=== PATIENT | female | born 1990 | race Caucasian/White ===

== ENCOUNTER 2017-11-21 13:21 | Emergency (ER) | payer OTHER ==
[~2017-11-21] VITALS: Ht 157.5 cm; Wt 127.7 kg
[2017-11-21 13:28] VITALS: BP 129/60; TEMP 98.2
[2017-11-21 13:57] LABS: COLLECTION METHOD CLEAN CATCH
[2017-11-21 14:17] LABS: MUCOUS Present /lpf; PH 6 (5-8); URINE APPEARANCE Hazy; URINE BACTERIA None Seen /hpf; URINE BILIRUBIN Negative (NEGATIVE); URINE BLOOD Negative (NEGATIVE); URINE COLOR Yellow; URINE GLUCOSE Negative (NEGATIVE); URINE KETONE Negative (NEGATIVE); URINE LEUKOCYTE ESTERASE 1+ (NEGATIVE); URINE NITRATE Negative (NEGATIVE); URINE PROTEIN(semi-quant) Negative (NEGATIVE); URINE RBC 0-2 /hpf; URINE UROBILINOGEN Negative (NEGATIVE)
[2017-11-21 15:04] LABS: BASO % 0.3 % (0.0-2.0); EOS # 0.1 (0.0-0.7); EOS % 1.3 % (0-4.0); GRAN # 6.6 (1.4-6.5); GRAN % 70.8 % (42.2-75.2); HEMOGLOBIN 10.7 g/dl (12.5-16.0); LYMPH % 21.1 % (20.0-51.0); MEAN CELL VOLUME 88 fl (80.0-100.0); MEAN CORPUSCULAR HEMOGLOBIN 30 pg (27.0-31.0); MEAN CORPUSCULAR HGB CONC 33 g/dl (33.0-37.0); MEAN PLATELET VOLUME 11.4 fl (7.4-10.4); MONO # 0.6 (0.1-0.6); PLATELET COUNT 222 K/mm3 (130-400); RED BLOOD COUNT 3.63 M/mm3 (4.10-5.30); REDCELL DISTRIBUTION WIDTH-CV 13.3 % (11.5-14.5)
[2017-11-21 15:15] LABS: ALBUMIN 3.3 gm/dL (3.5-5.0); BILIRUBIN,TOTAL 0.6 mg/dL (0.0-1.0); C-REACTIVE PROTEIN 1.6 mg/dL (0.0-0.9); CALCIUM 9.1 mg/dL (8.4-10.2); CREATININE, serum 0.51 mg/dL (0.52-1.25); POTASSIUM 3.8 mmol/L (3.4-5.0); TOTAL PROTEIN 7.4 gm/dL (6.4-8.2)
[2017-11-21 17:08] VITALS: PULSE 71
== END 2017-11-21 17:08 | disposition home or self-care (01) ==
LOC: COL.ER 13:21
PROVIDERS: Nurse Practitioner
DX: R51 Headache (principal)
CPT/HCPCS: J1200; J2765; J7030

== ENCOUNTER 2018-01-04 17:23 | Outpatient (CLI) | payer OTHER ==
[~2018-01-04] VITALS: Ht 157.5 cm; Wt 131.8 kg
[2018-01-04 17:49] VITALS: BP 122/68; PULSE 75; TEMP 98.7
[2018-01-04 18:00] VITALS: BP 122/68; PULSE 75; TEMP 98.7
[2018-01-04 18:22] VITALS: BP 120/66; PULSE 77
== END 2018-01-04 18:40 | disposition home or self-care (01) ==
LOC: LDRO 17:23 → LDR 17:23 → LDRO 18:40
DX: Z34.83 Encounter for supervision of other normal pregnancy, third trimester (principal); Z3A.37 37 weeks gestation of pregnancy
CPT/HCPCS: OP

== ENCOUNTER 2018-01-17 08:36 | Inpatient (IN) | payer OTHER ==
[~2018-01-17] VITALS: Ht 157.5 cm; Wt 132.3 kg
[2018-01-18] VITALS (63 sets, daily range): BP systolic 97–146; BP diastolic 52–80; PULSE 56–97; TEMP 97.3–98.5
[2018-01-18 08:27] LABS: BASO % 0.4 % (0.0-2.0); EOS # 0.1 (0.0-0.7); EOS % 1.1 % (0-4.0); GRAN # 5.7 (1.4-6.5); GRAN % 69.6 % (42.2-75.2); HEMOGLOBIN 10.3 g/dl (12.5-16.0); LYMPH # 1.9 (1.2-3.4); LYMPH % 23.3 % (20.0-51.0); MEAN CELL VOLUME 87 fl (80.0-100.0); MEAN CORPUSCULAR HEMOGLOBIN 28 pg (27.0-31.0); MEAN CORPUSCULAR HGB CONC 32 g/dl (33.0-37.0); MEAN PLATELET VOLUME 11.6 fl (7.4-10.4); MONO # 0.4 (0.1-0.6); MONO % 5.1 % (1.7-9.3); PLATELET COUNT 226 K/mm3 (130-400); RED BLOOD COUNT 3.71 M/mm3 (4.10-5.30); REDCELL DISTRIBUTION WIDTH-CV 14.6 % (11.5-14.5)
[2018-01-18 08:28] LABS: HEMATOCRIT 32.4 % (37.0-47.0)
[2018-01-19 00:15] VITALS: BP 100/55; PULSE 74
[2018-01-19 00:45] VITALS: BP 110/56; PULSE 78
[2018-01-19 01:45] VITALS: BP 108/59; PULSE 96; TEMP 98.5
[2018-01-19 07:00] VITALS: BP 119/65; PULSE 72; TEMP 98.1
[2018-01-19 08:28] LABS: HEMATOCRIT 31.7 % (37.0-47.0); HEMOGLOBIN 10.3 g/dl (12.5-16.0)
[2018-01-19 16:34] VITALS: BP 106/76; PULSE 78; TEMP 98.1
[2018-01-19 20:45] VITALS: BP 122/65; PULSE 79; TEMP 98
[2018-01-20 07:12] VITALS: BP 98/64; PULSE 70; TEMP 98.1
[2018-01-20] MEDS ORDERED: IBU600 MG PO (11:15)
== END 2018-01-20 12:20 | disposition home or self-care (01) | DRG 775 ==
LOC: LDR 08:36 → OB 01-19 01:45
PROVIDERS: Obstetrics & Gynecology
PROC: 10E0XZZ Delivery of Products of Conception, External Approach (ICD-10-PCS; principal; 2018-01-18)
PROC: 3E033VJ Introduction of Other Hormone into Peripheral Vein, Percutaneous Approach (ICD-10-PCS; 2018-01-18)
DX: O75.89 Other specified complications of labor and delivery (principal); Z68.43 Body mass index [BMI] 50.0-59.9, adult; O99.214 Obesity complicating childbirth; E66.9 Obesity, unspecified; Z3A.39 39 weeks gestation of pregnancy; Z37.0 Single live birth
CPT/HCPCS: J2590; J2795; J7120